=== PATIENT | male | born 1935 | race Caucasian/White ===

== ENCOUNTER 2019-05-12 12:15 | Outpatient (CLI) | payer MEDICARE, BC ==
[2019-05-12] MEDS ORDERED: ASPI-605 PO (15:47)
[2019-05-12] MEDS ORDERED: MELA5TAB PO (15:47)
[2019-05-12] MEDS ORDERED: ROSU40TA PO (15:47)
[2019-05-12] MEDS ORDERED: METF500S7 PO (15:47)
[2019-05-12] MEDS ORDERED: IRBE150T28 PO (15:47)
[2019-05-12] MEDS ORDERED: UBID50CA PO (15:47)
[2019-05-12] MEDS ORDERED: APIX5TAB4 PO (15:47)
[2019-05-12] MEDS ORDERED: OM3/1CAP3 PO (15:47)
[2019-05-12] MEDS ORDERED: MULT-439 PO (15:47)
[2019-05-12] MEDS ORDERED: METO50TA16 PO (15:47)
[2019-05-12] MEDS ORDERED: METO-357 PO (18:12)
[2019-05-15] MEDS ORDERED: LEVO500T90 PO (08:47)
== END 2019-05-12 23:59 | disposition home health service (06) ==
LOC: WOU 12:15
PROVIDERS: ATTEND Podiatrist Foot & Ankle Surgery
DX: E11.621 Type 2 diabetes mellitus with foot ulcer (principal); L97.826 Non-pressure chronic ulcer of other part of left lower leg with bone involvement without evidence of necrosis; Z79.84 Long term (current) use of oral hypoglycemic drugs; I73.9 Peripheral vascular disease, unspecified; R60.0 Localized edema; B35.1 Tinea unguium; L03.116 Cellulitis of left lower limb; Z79.01 Long term (current) use of anticoagulants; S80.12XD Contusion of left lower leg, subsequent encounter; W18.30XD Fall on same level, unspecified, subsequent encounter
CPT/HCPCS: 11043

== ENCOUNTER 2019-05-12 14:03 | Inpatient (IN) | payer MEDICARE, OTHER ==
[~2019-05-12] VITALS: Ht 177.8 cm; Wt 93.0 kg
[2019-05-12 15:10] VITALS: BP 134/72
--- NOTE | 2019-05-12 15:10 | NUR ---
WOUND STRIPPER CUTTER MACHINE: ADMISSION DIRECT ADMITTED THIS 83 YEAR OLD MALE PT WOUND CLINIC. PT FOR DEBRIDEMENT FOR TOMORROW PER WOUND CLINIC NURSE. LLE DRESSING IN PLACE, CLEAN, AND DRY. UNABLE TO ASSESS AND TAKE PHOTO DUE TO UNREMOVABLE DRESSING. PT WAS SEEN BY RESTAURANT CREW PERSON AND WAS TREATED AT THE CLINIC AND PHOTOS WERE TAKEN PRIOR TO DRESSING CHANGE. DR. RODRIGUEZ AWARE OF DIRECT ADMIT. AWAITING FOR MD TO SEE PT. AT BEDSIDE. PT A/OX4. NO C/O PAIN OR ANY DISCOMFORT. ORIENTED TO ROOM AND SURROUNDINGS. VSS; AFEBRILE. IN NO APPARENT DISTRESS NOTED. INSTRUCTED TO CALL FOR ASSISTANCE. WILL CONTINUE TO MONITOR.
[2019-05-12] MEDS ORDERED: MELA5TAB PO (15:47)
[2019-05-12] MEDS ORDERED: ROSU40TA PO (15:47)
[2019-05-12] MEDS ORDERED: UBID50CA PO (15:47)
[2019-05-12] MEDS ORDERED: OM3/1CAP3 PO (15:47)
[2019-05-12] MEDS ORDERED: IRBE150T28 PO (15:47)
[2019-05-12] MEDS ORDERED: MULT-439 PO (15:47)
[2019-05-12] MEDS ORDERED: APIX5TAB4 PO (15:47)
[2019-05-12] MEDS ORDERED: METF500S7 PO (15:47)
[2019-05-12] MEDS ORDERED: ASPI-605 PO (15:47)
[2019-05-12] MEDS ORDERED: METO50TA16 PO (15:47)
--- NOTE | 2019-05-12 15:50 | NUR ---
M/S HUMAN RESOURCES CLERK: NOTES INSERTED IV TO RIGHT FOREARM, GAUGE #20. DR. RODRIGUEZ ON THE PHONE AND REMINDED HIM OF ADMISSION.
[2019-05-12 16:00] VITALS: BP 134/72
--- NOTE | 2019-05-12 16:24 | NUR ---
WOUND ASSISTED LIVING CARE MANAGER: NOTES DR. RODRIGUEZ AT BEDSIDE AT THIS TIME.
--- NOTE | 2019-05-12 16:35 | NUR ---
M/S BROKERAGE PURCHASE AND SALE CLERK: NOTES MRSA SUIRVELLANCE (NOSTRIL) COLLECTED AND SENT TO LAB.
--- NOTE | 2019-05-12 17:29 | NUR ---
wound dialer: notes dinner served. hob elevated. instructed to call for assistance. will monitor.
[2019-05-12] MEDS ORDERED: *INSULIN REGULAR(HUMULIN R)HUM 100 UNIT/ML VIAL SQ PRN (18:00)
[2019-05-12] MEDS ORDERED: Z GUARD REMEDY 2 OZ OINT TP PRN (18:00)
[2019-05-12] MEDS ORDERED: MAG HYDROX/AL HYDROX/SIMETH 30 ML UDC PO PRN (18:00)
[2019-05-12] MEDS ORDERED: DEXTROSE 50%-WATER 50 ML DISP.SYRIN IV PRN (18:00)
[2019-05-12] MEDS ORDERED: ACETAMINOPHEN 325 MG TABLET PO PRN (18:00)
[2019-05-12] MEDS ORDERED: ONDANSETRON HCL/PF 4 MG/2 ML VIAL IVP PRN (18:00)
[2019-05-12] MEDS ORDERED: MAGNESIUM HYDROXIDE 30 ML UDC PO PRN (18:00)
[2019-05-12] MEDS ORDERED: FEE PK DOSING 1 MIN EA MC ONE (18:03)
[2019-05-12] MEDS ORDERED: METO-357 PO (18:12)
[2019-05-12] MEDS ORDERED: VANCOMYCIN 1 GM in IV D5W 250 ML IV ONE (18:30)
--- NOTE | 2019-05-12 18:35 | NUR ---
M/S ASSISTANT BANQUET MANAGER: NOTES DR. SUAREZ (DPM) CALLED WITH ORDERS TO KEEP PT NPO AFTER MIDNIGHT AND CONSENT FOR LEFT LOWER EXTREMITY DEBRIDEMENT WITH POSSIBLE OF APPLICATION OF WOUND VAC AND POSSIBLE WOUND CLOSURE. ORDERS READ BACK AND CARRIED OUT AND ACKNOWLEDGED.
[2019-05-12 18:36] LABS: CALCIUM, SERUM 8.7 mg/dL (8.5-10.1); CARBON DIOXIDE 29 mmol/L (21-32); CHLORIDE 104 mmol/L (98-107); CREATININE 1.5 mg/dL (0.6-1.3); GLUCOSE 170 mg/dL (74-106); POTASSIUM 4.3 mmol/L (3.5-5.1); SODIUM SERUM 139 mmol/L (136-145); UREA NITROGEN, BLOOD 26 mg/dL (7-18)
--- NOTE | 2019-05-12 18:50 | NUR ---
M/S AIR ROUTE CONTROLLER: NOTES PT MADE AWARE REGARDING PROCEDURE FOR TOMORROW. CONSENTS OBTAINED FROM PT AND VERBALIZED UNDERSTANDING. AT BEDSIDE. NEEDS ATTENDED. NO DISTRESS NOTED.
--- NOTE | 2019-05-12 19:00 | NUR ---
m/s artist consultant: notes bedside report given to morteza (rn) for continuity of care.
--- NOTE | 2019-05-12 19:05 | NUR ---
RN INITIAL NOTES: RECEIVED REPORT FROM NORBERTO RANGEL. MET WITH PT AND PT'S . PT IS A/O X4, ON RA, RESPIRATIONS EVEN AND UNLABORED. PT DENIES ANY PAIN OR DISCOMFORT AT THIS TIME. PT HAS LLE WOUND, WITH DRESSING. NOTED DRESSING WITH MARKED BLOOD, BUT NO LEAKING OR BLOODY STRIKETHROUGH NOTED. PT FOR DEBRIDEMENT IN AM, CONSENT SECURED. INFORMED PT ABOUT BEING NPO AFTER MIDNIGHT. DISCUSSED PLAN OF CARE TO PT. PT AGREE. PT'S WILL BRING THE ADVANCE DIRECTIVE FORM IN AM. IV ACCESS PATENT AND FLUSHING WELL, CURRENTLY ON IV VANCOMYCIN. SAFETY PRECAUTIONS FOR FALL INITIATED, CALL LIGHT IN REACH, WILL CONTINUE MONITORING PT.
[2019-05-12 20:00] VITALS: BP 190/95
[2019-05-12 20:53] VITALS: BP 171/83
--- NOTE | 2019-05-12 21:03 | NUR ---
RN NOTES: PT'S BP ELEVATED, INITIAL RESULT IS 190/95 HR 58, RECHECK AFTER AN HOUR, RESULT OBTAINED IS 171/83 HR 60, CONTACTED EPIC BIOLOGY LECTURER, PER MD TO GIVE HYDRALAZINE 25MG PO Q6HRS PRN FOR SBP GREATER THAN 160, ORDERS READ BACK, VERIFIED, CARRIED OUT.
--- NOTE | 2019-05-12 21:21 | NUR ---
PRN APRESOLINE: PT BP 171/83 HR 60, PRN APRESOLINE 25MG TAB PO ADMINISTERED TO PT AT THIS TIME, WILL CONTINUE MONITOR
[2019-05-12] MEDS: BLOOD SUGAR DIAGNOSTIC 1 EACH STRIP VI SCH (21:24)
--- NOTE | 2019-05-12 21:24 | NUR ---
ACCU CHECK 134: BLOOD SUGAR 134, PT REFUSED FOR INSULIN STATED HE'S NOT ON INSULIN AT HOME AND WA TAKING METFORMIN.
[2019-05-12] MEDS ORDERED: hydrALAZINE HCL 25 MG TABLET PO PRN (21:30)
[2019-05-12] MEDS ORDERED: ATORVASTATIN 40 MG TABLET PO ONE (22:00)
[2019-05-12] MEDS ORDERED: Medication Not On Formulary EA (Melatonin 5 MG) PO SCH (22:00)
[2019-05-12 23:40] VITALS: BP 155/82
--- NOTE | 2019-05-12 23:41 | NUR ---
RN NOTES: DRESSING ON LLE REINFORCED AT THIS TIME. WILL MONITOR FOR FURTHER BLEEDING
[2019-05-13] VITALS (11 sets, daily range): BP systolic 120–150; BP diastolic 61–87
[2019-05-13 03:23] LABS: BASOPHILS % (AUTO) 0.9 % (0.0-2.0); EOSINOPHILS % (AUTO) 3.3 % (0.0-6.0); HEMATOCRIT 36 % (39-51); LYMPHOCYTES # (AUTO) 0.8 /CMM (0.8-4.8); LYMPHOCYTES % (AUTO) 15.3 % (20.0-44.0); MEAN CORPUSCULAR HGB CONC 33 g/dl (31.0-36.0); MEAN CORPUSCULAR VOLUME 80 fL (80-96); MONOCYTES # (AUTO) 0.5 /CMM (0.1-1.30); MONOCYTES % (AUTO) 9.3 % (2.0-12.0); NEUTROPHILS # (AUTO) 3.7 /CMM (1.8-8.9); NEUTROPHILS % (AUTO) 71.2 % (43.0-81.0); PLATELET COUNT (AUTO) 152 /CMM (150-450); RED BLOOD CELL COUNT(AUTO) 4.53 MIL/uL (4.5-6.0); WHITE BLOOD COUNT (AUTO) 5.2 K/uL (4.3-11.0)
[2019-05-13 03:34] LABS: CALCIUM, SERUM 8.8 mg/dL (8.5-10.1); CARBON DIOXIDE 28 mmol/L (21-32); CHLORIDE 104 mmol/L (98-107); CREATININE 1.4 mg/dL (0.6-1.3); GLUCOSE 106 mg/dL (74-106); MAGNESIUM 1.8 mg/dL (1.8-2.4); PHOSPHORUS 3.8 mg/dL (2.5-4.9); SODIUM SERUM 140 mmol/L (136-145); UREA NITROGEN, BLOOD 23 mg/dL (7-18)
--- NOTE | 2019-05-13 05:40 | NUR ---
RN NOTES: X RAY BEING SONE AT BED SIDE
--- NOTE | 2019-05-13 06:00 | NUR ---
RN NOTES: EKG PERFORMED. RESULT IS SINUS BRADYCARDIA HR 56. PRE-OP.
[2019-05-13] MEDS: BLOOD SUGAR DIAGNOSTIC 1 EACH STRIP VI SCH ×4 (06:43→21:13)
--- NOTE | 2019-05-13 06:43 | NUR ---
ACCU CHECK 100: BLOOD SUGAR 100, NO INSULIN COVERAGE GIVEN PER SLIDING SCALE. PT NPO AWAITING SURGERY TODAY
[2019-05-13] MEDS ORDERED: MIDAZOLAM HCL 2 MG/2ML VIAL ONE (06:57)
[2019-05-13] MEDS ORDERED: FAMOTIDINE/PF INJ 20 MG/2 ML VIAL IV ONE (06:58)
[2019-05-13] MEDS ORDERED: FENTANYL PF 250MCG/5ML AMPUL ONE (06:58)
--- NOTE | 2019-05-13 07:01 | NUR ---
RN NOTES: RECEIVED CALL FROM DR SUAREZ, PER ASKING TO HAVE MRI DONE STAT BEFORE 729, CONTACTED MRI NO ANSWER, LEFT A MESSAGE. CONTACTED 4061, PER TECH DIETETIC AIDE WONT COME TILL 0900-09:30AM, AND OFFICE HOURS UP TO 0500PM ONLY. INFORMED DR SUAREZ
--- NOTE | 2019-05-13 07:02 | NUR ---
RN CLOSING NOTES: PT WILL BE GOING TO OR FOR DEBRIDEMENT OF LLE WOUND, POSSIBLE WOUND VAC APPLICATION, POSSIBLE WOUND CLOSURE. ALL CONSENT SIGNED BY PT. CHECKLIST READY. IV ACCESS REMAINS PATENT AND FLUSHING WELL, ON HL. VS REMAINS STABLE, NEEDS ATTENDED. REPORT GIVEN TO OR NURSE, AWAITING CLASSROOM PARAPROFESSIONAL. WILL ENDORSE TO DAY RN FOR CONTINUITY OF CARE.
[2019-05-13] MEDS ORDERED: ANESTHESIA TRAY IN PYXIS 1 EA TRAY MC ONE (07:03)
--- NOTE | 2019-05-13 07:06 | NUR ---
TEXTED DR. BASS FOR MRI APPROVAL.
--- NOTE | 2019-05-13 07:30 | NUR ---
rn notes: bead picker by md dr bobby bass in the unit. orders for wound vac transcribed, placed a call to central, no answer, left a message.
--- NOTE | 2019-05-13 07:30 | NUR ---
MS RN OPENING NOTES RECEIVED PATIENT OFF UNIT. PATIENT CURRENTLY IN OR FOR LEFT LOWER EXTREMITY DEBRIDEMENT.
[2019-05-13] MEDS ORDERED: BACITRACIN 50000 UNITS/VIAL ONE (07:42)
[2019-05-13] MEDS ORDERED: LIDOCAINE HCL/MPF 1% 30 ML VIAL IJ ONE (07:42)
--- NOTE | 2019-05-13 07:43 | NUR ---
MRI APPROVED, JUST TEXTED ICE CREAM MIXER TO COME IN EARLY.
--- NOTE | 2019-05-13 08:50 | NUR ---
MS RN NOTES RECEIVED REPORT FROM CRISTI IN OR, THAT PATIENT IS FINISHED AND WILL BACK UP TO THE UNIT. WITH ORDERS FOR WOUND VAC DSG CHANGE 3X/WL, ID CONSULT, WEIGHT BEARING TOLERATED ALERT AND ORIENTED WITH NO C/O PAIN. PER TORO JAQUEZ DR. WILL WRITE ORDERS.
[2019-05-13] MEDS ORDERED: Medication Not On Formulary EA (Om3/Dha/Epa/Cod Liver Oil/A/D3 (Cod Liver Oil Softgel) 1 PO SCH (09:00)
[2019-05-13] MEDS ORDERED: Medication Not On Formulary EA (Rosuvastatin Calcium (Crestor) 40 MG) PO SCH (09:00)
[2019-05-13] MEDS ORDERED: UBIDECARENONE 100 MG PO SCH (09:00)
[2019-05-13] MEDS ORDERED: IRBESARTAN (150MG) 150 MG TABLET PO SCH (09:00)
[2019-05-13] MEDS ORDERED: METOPROLOL TARTRATE 50 MG TABLET PO SCH (09:00)
--- NOTE | 2019-05-13 09:00 | NUR ---
MS RN NOTES RECEIVED PATIENT FROM [facility] OR VIA GUSRNEY FOR S/P LEFT LOWER EXTREMITY DEBRIDEMENT. DRESSING TO LEFT LEG IN PLACE. WOUND VAC INTACT SUCTIONING SEROSANG FLUID WITH SETTING OF 125MMHG CONTINUOS ORDERED. PATIOENT DENIES ANY CV/O PAIN NOR DISCOMFORT AT THIS TIME. V/S FOLLOWS, 131/72, 97.7, HR 57, RR 18, SPO2 OF 96% ROOM AIR. REORIENTED PATIENT TO ROOM, CALL LIGHT AND UNIT.
--- NOTE | 2019-05-13 10:00 | NUR ---
MS RN NOTES PATIENT OFF UNIT, LEFT FOR MRI IN STABLE CONDITION.
--- NOTE | 2019-05-13 10:12 | NUR ---
MS RN NOTES RECEIVED A CALL FROM TORO LUEVANO, PER DR, TO CANCEL MRI, HE DOES NOT WANT PATIENT OFF THE WOUND VAC. ORDER NOTED AND CARRIED OUT.
--- NOTE | 2019-05-13 10:50 | NUR ---
MS RN NOTES PATIENT RETURNED FROM MRI VIA GURNEY. TORO LUEVANO IN ROOM AND SPOKE TO AND PATIENT REGARDING SURGERY, WOUND VAC AND FOLLOW UP. PER , WOUND VAC DRESSING WILL BE CHANGE 3X/WK AND REMAINS AT CONTINUOS 1255MMHG SETTING.
--- NOTE | 2019-05-13 11:15 | NUR ---
MS RN NOTES SEEN BY CASE MANAGEMENT FOR D/C PLANNING
[2019-05-13] MEDS ORDERED: VANCOMYCIN 1 GM in IV D5W 250 ML IV SCH (12:00)
[2019-05-13] MEDS: METOPROLOL SUCCINATE 50 MG TAB.SR.24H PO SCH (12:23)
[2019-05-13] MEDS: LOSARTAN POTASSIUM 50 MG TABLET PO SCH (12:23)
[2019-05-13] MEDS: MULTIVIT W/MINERALS 1 TAB TABLET PO SCH (12:24)
--- NOTE | 2019-05-13 12:25 | NUR ---
MS RN NOTES B/P MEDS GIVEN. PER PATIENT OK TO TAKE ALL MEDS NOW. PER PATIENT HR BASELINE IS IN LOW 50'S AND ALWAYS TAKES METOPROLOL.
[2019-05-13] MEDS: INSULIN REGULAR, HUMAN 100 UNIT/ML 3 ML VIAL SQ PRN ×2 (13:24→17:34)
[2019-05-13 16:58] LABS: APPEARANCE,URINE CLEAR (CLEAR); BILIRUBIN,URINE NEGATIVE (NEGATIVE); BLOOD, URINE NEGATIVE Ery/uL (NEGATIVE); COLOR,URINE YELLOW (YELLOW); KETONES,URINE NEGATIVE (NEGATIVE); LEUKOCYTE ESTERASE ,URINE NEGATIVE (NEGATIVE); NITRITE, URINE NEGATIVE (NEGATIVE); PROTEIN,URINE NEGATIVE (NEGATIVE); UGLUCOSE NEGATIVE (NEGATIVE); UROBILINOGEN,URINE 0.2 EU/dL (0.2)
[2019-05-13 17:04] LABS: CREATININE, URINE 115.3 MG/DL (30.0-125.0)
[2019-05-13 17:42] LABS: EOSINOPHIL,URINE None Seen
--- NOTE | 2019-05-13 18:50 | NUR ---
MS RN CLOSING NOTES PATIENT ALERT AND ORIENTED X4. S/P LLE DEBRIDEMENT WITH WOUND VAC AND DRESSING INTACT AND SUCTIONING SEROSANG FLUID CONTINUOUSLY AT 125MMHG ORDERED. PATIENT AMBULATORY WITH STEADY GAIT. PATIENT DID NOT C/O PAIN NOR DISCOMFORT TO LLE DURING THE SHIFT S/P DEBRIDEMENT. RIGHT WRIST #20 INTACT AND PATENT WITHOUT S/S OF COMPLICATIONS OBSERVED. ABLE TO VERBALIZE NEEDS. CALL LIGHT WITHIN REACH. BED IN LOWEST POSITION.
--- NOTE | 2019-05-13 19:30 | NUR ---
RN OPEN NOTES RECEIVED PATIENT AWAKE SITTING IN CHAIR. A/OX4. NO SIGNS OF DISTRESS OR DISCOMFORT. BREATHING EVEN AND UNLABORED. IV ACCESS IN R WRIST, PATENT AND INTACT, NO SIGNS OF REDNESS OR INFILTRATIONS. HAS WOUND VAC INTACT ON CONTINUOUS SUCTION AT 125MMHG SUCTIONING SERO SANG FLUID. BED IN LOW LOCKED POSITION WITH SIDE RAILS X2. CALL LIGHT WITHIN REACH. WILL CONTINUE TO MONITOR.
[2019-05-13] MEDS: CEFEPIME 1 GM in IV D5W 50 ML IV SCH (20:13)
[2019-05-13] MEDS: HYDROCODONE/APAP 5/325MG 1 EACH TABLET PO PRN (20:22)
--- NOTE | 2019-05-13 20:22 | NUR ---
RN NOTES ADMINISTERED NORCO 5/325MG ORDERED FOR 4/10 LL LEG PAIN, AT PATIENT REQUEST. VSS. WILL CONTINUE TO MONITOR.
[2019-05-13] MEDS ORDERED: CLINDAMYCIN IV RTU IN D5W 600 MG/50 ML PIGGYBACK IV SCH (21:00)
[2019-05-13] MEDS: CLINDAMYCIN 600 MG in IV D5W 50 ML IV SCH (21:12)
[2019-05-13] MEDS: ATORVASTATIN 40 MG TABLET PO SCH (21:12)
[2019-05-13] MEDS: ZOLPIDEM TARTRATE 5 MG TABLET PO PRN (23:01)
--- NOTE | 2019-05-13 23:01 | NUR ---
RN NOTES ADMINISTERED AMBIEN 5MG ORDERED FOR INSOMNIA AT PATIENT REQUEST. VSS. WILL CONTINUE TO MONITOR.
[2019-05-14] MEDS: CLINDAMYCIN 600 MG in IV D5W 50 ML IV SCH ×3 (06:00→20:47)
[2019-05-14] MEDS: BLOOD SUGAR DIAGNOSTIC 1 EACH STRIP VI SCH ×4 (06:35→22:11)
--- NOTE | 2019-05-14 06:54 | NUR ---
RN CLOSING NOTES PATIENT AWAKE SITTING IN BED. A/OX4. NO SIGNS OF DISTRESS OR DISCOMFORT. BREATHING EVEN AND UNLABORED. IV ACCESS IN R WRIST, PATENT AND INTACT, NO SIGNS OF REDNESS OR INFILTRATIONS. HAS WOUND VAC INTACT ON CONTINUOUS SUCTION AT 125MMHG SUCTIONING VERY SCANT SERO SANG FLUID. SUCTIONED <10ML OF FLUID THROUGHOUT SHIFT. ALL NEEDS MET. NO SIGNIFICANT CHANGES THROUGH THE NIGHT. BED IN LOW LOCKED POSITION WITH SIDE RAILS X2. CALL LIGHT WITHIN REACH. WILL ENDORSE TO AM SHIFT FOR SALONI.
--- NOTE | 2019-05-14 07:30 | NUR ---
RN MS NOTES PT IN BED, AWAKE, ALERT AND ORIENTED, NO COMPLAINT OF PAIN OR ANY DISCOMFORT, RESPIRATIONS NORMAL, CALL LIGHT WITHIN REACH, WOUND VAC IN PLACE, DRAINING MINIMALLY WITH SANGUENOUS DRAIN, NEEDS ATTENDED.
[2019-05-14 07:38] LABS: EOSINOPHILS % (AUTO) 5.4 % (0.0-6.0); HEMATOCRIT 38 % (39-51); HEMOGLOBIN 12.2 g/dL (13.5-17.5); LYMPHOCYTES # (AUTO) 0.9 /CMM (0.8-4.8); MEAN CORPUSCULAR HGB CONC 32 g/dl (31.0-36.0); MEAN CORPUSCULAR VOLUME 81 fL (80-96); MONOCYTES # (AUTO) 0.6 /CMM (0.1-1.30); MONOCYTES % (AUTO) 11.6 % (2.0-12.0); NEUTROPHILS # (AUTO) 3.1 /CMM (1.8-8.9); PLATELET COUNT (AUTO) 162 /CMM (150-450); RED BLOOD CELL COUNT(AUTO) 4.61 MIL/uL (4.5-6.0); WHITE BLOOD COUNT (AUTO) 4.9 K/uL (4.3-11.0)
[2019-05-14 07:57] LABS: CREATINE KINASE, TOTAL 88 U/L (39-308)
[2019-05-14 08:00] LABS: ALANINE AMINOTRANSFERASE 23 U/L (12-78); ALBUMIN 2.9 g/dL (3.4-5.0); ALKALINE PHOSPHATASE 92 U/L (46-116); ASPARTATE AMINOTRANSFERASE 13 U/L (15-37); BILIRUBIN,TOTAL 0.4 mg/dL (0.2-1.0); CALCIUM, SERUM 8.5 mg/dL (8.5-10.1); CARBON DIOXIDE 29 mmol/L (21-32); CHLORIDE 104 mmol/L (98-107); CREATININE 1.5 mg/dL (0.6-1.3); GLUCOSE 104 mg/dL (74-106); MAGNESIUM 2.4 mg/dL (1.8-2.4); PHOSPHORUS 3.4 mg/dL (2.5-4.9); SODIUM SERUM 141 mmol/L (136-145); TOTAL PROTEIN, SERUM 6.6 g/dL (6.4-8.2); UREA NITROGEN, BLOOD 21 mg/dL (7-18)
[2019-05-14 08:01] VITALS: BP 162/88
[2019-05-14] MEDS: CEFEPIME 1 GM in IV D5W 50 ML IV SCH ×2 (08:55→17:43)
[2019-05-14] MEDS: MULTIVIT W/MINERALS 1 TAB TABLET PO SCH (08:55)
[2019-05-14] MEDS: LOSARTAN POTASSIUM 50 MG TABLET PO SCH (08:56)
[2019-05-14] MEDS: METOPROLOL SUCCINATE 50 MG TAB.SR.24H PO SCH (08:56)
--- NOTE | 2019-05-14 13:00 | NUR ---
RN MS NOTES PT IN BED, AWAKE, ALERT AND ORIENTED, DENIES PAIN, NOT IN DISTRESS, PER PT HE COMPLETED MRI YESTERDAY, CALLED MRI, RESULT UPLOADED TO THE SYSTEM, AWAITING FINAL WOUND CULTURE RESULTS, PT ABLE TO AMBULATE ALONG THE HALLWAY WITH SLOW STEADY GAIT.
[2019-05-14 16:00] VITALS: BP 141/77
--- NOTE | 2019-05-14 18:31 | NUR ---
RN MS NOTES PT IN BED, AWAKE, ALERT AND ORIENTED, NO COMPLAINT OF PAIN OR ANY DISCOMFORT, RESPIRATIONS NORMAL, WOUND VAC DRAINING MINIMALLY, PM MEDS GIVEN ORDERED, ALL NEEDS ATTENDED.
[2019-05-14 20:00] VITALS: BP 159/78
[2019-05-14] MEDS: HYDROCODONE/APAP 5/325MG 1 EACH TABLET PO PRN (21:01)
--- NOTE | 2019-05-14 21:01 | NUR ---
ms cigarette making examiner notes pain mgt c/o left leg pain norco tablet given as ordered. .will re- assess later.
--- NOTE | 2019-05-14 21:15 | NUR ---
MS RANGEL INITIAL NOTES RECEIVED PT IN BED AWAKE AND SITTING WHILE TALKING TO THE MUSIC ENGRAVER MARTINE. HE HAD A WOUND BACK AND WORKING WELL ONLY LITTLE AMOUNT OF OUTPUT NOTED. DRESSING DRY AND INTACT. DENIES ANY PAIN OR ANY DISCOMFORT AT THIS TIME. KEPT HIM WARM AND COMFORTABLE AT ALL TIMES. PLACE CALL LIGHT AT REACH. WILL CONTINUE MONITORING. Addendum: 05/14/19 at 2155 by ERI LUCAS LVN wrong time
[2019-05-14] MEDS: ATORVASTATIN 40 MG TABLET PO SCH (22:11)
[2019-05-14] MEDS: ZOLPIDEM TARTRATE 5 MG TABLET PO PRN (22:15)
--- NOTE | 2019-05-14 22:15 | NUR ---
MS DESIGN TECHNOLOGY TEACHER NOTES BLOOD SUGAR CHECKED DONE 116, NO INSULIN DUE AT THIS TIME. NO SIGNS OF HYPO GLYCEMIA NOTED. SLEEP MEDICATION ALSO ADMINISTER ND PT REQUESTED. KEPT HIM WARM AND COMFORTABLE AT ALL TIMES. WOUND VAC STILL IN PLACE,. WILL CONTINUE MONITORING.
--- NOTE | 2019-05-15 | NUR ---
MS FINANCIAL CENTER MANAGER NOTES PT SLEEPING COMFORTABLY IN BED WITHOUT ANY DISCOMFORT NOTED. WILL CONTINUE MONITORING.
[2019-05-15] MEDS: CLINDAMYCIN 600 MG in IV D5W 50 ML IV SCH (05:10)
[2019-05-15] MEDS: BLOOD SUGAR DIAGNOSTIC 1 EACH STRIP VI SCH (06:47)
--- NOTE | 2019-05-15 06:51 | NUR ---
ms bottle labeler notes blood sugar checked done 99, no insulin due at this time. pt denies any discomfort. he stand up and ambulate doing his morning routine. pt stated slept well and stable susan the night and all due meds . all needs met and no signs of any discomfort noted. still on wound vac. no leaking noted. endorsed to am nurse for continuity of care. place call light at reach.
[2019-05-15] MEDS: INSULIN REGULAR, HUMAN 100 UNIT/ML 3 ML VIAL SQ PRN (07:03)
[2019-05-15 07:20] LABS: CALCIUM, SERUM 8.7 mg/dL (8.5-10.1); CARBON DIOXIDE 29 mmol/L (21-32); CHLORIDE 106 mmol/L (98-107); CREATININE 1.4 mg/dL (0.6-1.3); GLUCOSE 106 mg/dL (74-106); SODIUM SERUM 142 mmol/L (136-145); UREA NITROGEN, BLOOD 24 mg/dL (7-18)
--- NOTE | 2019-05-15 07:25 | NUR ---
MS RN OPENING NOTES RECEIVED PT IN THE ROOM AWAKE, WALKING BACK TO HIS BED FROM THE BATHROOM. A/O X4. TOLERATING RA, WITH NO ACUTE RESPIRATORY DISTRESS NOTED. PT DENIES ANY PAIN OR DISCOMFORT AT THIS TIME. PT DENIES ANY CONCERNS AND QUESTIONS. PT JUST STATED HE'S READY TO GO HOME TODAY. PIV TO RIGHT WRIST G20 SL, FLUSHED WITH NS, INTACT AND OPERATIONAL. PT KEPT COMFORTABLE. CALL LIGHT KEPT WITHIN REACH. PT'S BED IN LOWEST, LOCKED POSITION WITH SR X2. WILL CONTINUE PLAN OF CARE.
[2019-05-15 08:00] VITALS: BP 135/68
[2019-05-15 08:06] LABS: *SPE A/G RATIO 1.1 (0.7-1.7); *SPE ALBUMIN 3.1 g/dL (2.9-4.4); *SPE ALPHA-1-GLOBULIN 0.3 g/dL (0.0-0.4); *SPE ALPHA-2-GLOBULIN 0.9 g/dL (0.4-1.0); *SPE BETA GLOBULIN 0.8 g/dL (0.7-1.3); *SPE GLOBULIN, TOTAL 2.9 g/dL (2.2-3.9); *SPE M-SPIKE Not Observed g/dL (Not Observed); *SPEGAMMA GLOBULIN 0.9 g/dL (0.4-1.8)
[2019-05-15] MEDS: MULTIVIT W/MINERALS 1 TAB TABLET PO SCH (08:15)
[2019-05-15 08:16] VITALS: BP 135/68
[2019-05-15] MEDS: METOPROLOL SUCCINATE 50 MG TAB.SR.24H PO SCH (08:16)
[2019-05-15] MEDS: LOSARTAN POTASSIUM 50 MG TABLET PO SCH (08:16)
--- NOTE | 2019-05-15 08:19 | NUR ---
RN NOTES PT HAS BP OF 135/68 AND RECHECKED HR OF 56. PT INSIST TO TAKE METOPROLOL STATING HIS HEART RATE IS NORMALLY AT 50S AND STILL TAKING METOPROLOL. RN RECOMMENDED TO SKIP THE DOSE, PT STILL INSIST TO TAKE IT. WILL CONTINUE TO MONITOR.
[2019-05-15] MEDS ORDERED: LEVO500T90 PO (08:47)
--- NOTE | 2019-05-15 10:31 | NUR ---
WOUND CARE CONSULT: PT SEEN FOR WOUND VAC DRESSING CHANGE. [facility] HOME VAC UNIT APPLIED TODAY. WOUND ON LEFT LOWER LEG MEASURES 6CM X 2CM X 0.5CM WITH TWO SUTURES IN PLACE AT EDGE OF WOUND. SLIGHT EDEMA NOTED TO PERIWOUND AREA. SEROSANGUINOUS DRAINAGE NOTED, SCANT AMOUNT, NO ODOR. PERIWOUND IS CLEAR. SKIN PREP AND VAC DRAPE WAS APPLIED TO PERIWOUND, OIL EMULSION DSG APPLIED TO WOUND, COVERED WITH GRANUFOAM. VAC AT 125mmHg CONTINUOUS SETTING. PT TOLERATED WELL, KERLIX WRAP AND BURN NET APPLIED. ALL INSTRUCTIONS GIVEN TO PT AND EXPLAINED USE OF HOME VAC UNIT, INCLUDING LEATHER STAKER INSTRUCTIONS. PT VERBALIZED UNDERSTANDING. DISCUSSED WITH NURSING STAFF. WOUND PHOTO WAS TAKEN BY VALERIA.
--- NOTE | 2019-05-15 11:20 | NUR ---
MS LIFE SKILLS COORDINATOR NOTES PT TO DISCHARGE HOME WITH [facility]. PT PICKED UP BY SPOUSE. PT A/O X4, AMBULATORY. PT TOLERATING RA, WITH NO ACUTE RESPIRATORY DISTRESS NOTED. PT DENIES ANY PAIN OR DISCOMFORT AT THE TIME OF DISCHARGE. DISCHARGE INSTRUCTIONS AND INVENTORY LIST SIGNED BY PT. ALL BELONGINGS WITH THE PT. PICTURE OF LEFT LOWER LEG WOUND TAKEN AND FILED IN THE CHART. WOUND DRESSING WAS CHANGED. PT AND SPOUSE INSTRUCTED HOW TO MANIPULATE WOUND VAC. PRESCRIPTION OF LEVAQUIN 250MMG QD X5DAYS GIVEN TO THE PT. PUV TO RIGHT WRIST REMOVED AND APPLIED DRESSING. ALL NEEDS AND CARE PROVIDED. PT GLAD WITH ALL THE CARING STAFFS. PT LEFT THE UNIT AT 1110 AMBULATING, ESCORTED BY SLICK TO THE LOBBY AND ACCOMPANIED BY SPOUSE. SAM/FILIPE AND /CARLOS AWARE OF DISCHARGE.
[2019-05-15 14:07] LABS: PTH, INTACT 29 pg/mL (15-65)
[2019-05-15] MEDS ORDERED: CEFTRIAXONE 1 G in IV D5W 50 ML IV SCH (17:00)
== END 2019-05-15 11:00 | disposition home health service (06) | DRG 982 ==
LOC: WOUND3 14:37 → MED 18:19
PROVIDERS: ADMIT Internal Medicine; ATTEND Internal Medicine
PROC: 0KBT0ZZ Excision of Left Lower Leg Muscle, Open Approach (ICD-10-PCS; principal; 2019-05-13)
DX: E11.621 Type 2 diabetes mellitus with foot ulcer (principal); L03.116 Cellulitis of left lower limb; L97.929 Non-pressure chronic ulcer of unspecified part of left lower leg with unspecified severity; L02.416 Cutaneous abscess of left lower limb; I25.10 Atherosclerotic heart disease of native coronary artery without angina pectoris; Y92.9 Unspecified place or not applicable; I48.91 Unspecified atrial fibrillation; Z95.5 Presence of coronary angioplasty implant and graft; W18.30XA Fall on same level, unspecified, initial encounter; E11.42 Type 2 diabetes mellitus with diabetic polyneuropathy; E11.622 Type 2 diabetes mellitus with other skin ulcer; E11.22 Type 2 diabetes mellitus with diabetic chronic kidney disease; I12.9 Hypertensive chronic kidney disease with stage 1 through stage 4 chronic kidney disease, or unspecified chronic kidney disease; N18.9 Chronic kidney disease, unspecified; E78.5 Hyperlipidemia, unspecified; I10 Essential (primary) hypertension; Z79.82 Long term (current) use of aspirin; Z79.84 Long term (current) use of oral hypoglycemic drugs; Z79.899 Other long term (current) drug therapy; J44.9 Chronic obstructive pulmonary disease, unspecified; Z91.81 History of falling; Z83.3 Family history of diabetes mellitus; B35.1 Tinea unguium; Z98.890 Other specified postprocedural states; N17.0 Acute kidney failure with tubular necrosis
CPT/HCPCS: 36415; 71045-TC; 73590-TC; 73718-TC; 80048-TC; 80053-TC; 81000-TC; 82550-TC; 82570-TC; 82962-TC; 83735-TC; 83970; 84100-TC; 84155; 84155-TC; 84165; 84300-TC; 85025-TC; 85610-TC; 85652-TC; 85730-TC; 86850-TC; 87070-TC; 87081-TC; 87186-TC; 93926-TC; A4217; A6209; A6253; A6403; G0378; J0690; J0692; J0696; J1815; J2250; J2405; J2704; J2765; J3010; J3370; J3490; J7050; J7060

== ENCOUNTER 2019-05-19 13:02 | Outpatient (CLI) | payer MEDICARE, OTHER ==
[~2019-05-19 13:02] MED LIST: APIX5TAB4 PO; ASPI-605 PO; IRBE150T28 PO; LEVO500T90 PO; MELA5TAB PO; METF500S7 PO; METO-357 PO; MULT-439 PO; OM3/1CAP3 PO; ROSU40TA PO; UBID50CA PO
== END 2019-05-19 23:59 | disposition home or self-care (01) ==
LOC: MSC 13:02
PROVIDERS: ATTEND Internal Medicine
DX: S81.802D Unspecified open wound, left lower leg, subsequent encounter (principal); I48.91 Unspecified atrial fibrillation; Z95.5 Presence of coronary angioplasty implant and graft; I10 Essential (primary) hypertension; E78.5 Hyperlipidemia, unspecified; J44.9 Chronic obstructive pulmonary disease, unspecified; E11.8 Type 2 diabetes mellitus with unspecified complications; Z79.84 Long term (current) use of oral hypoglycemic drugs; Z79.82 Long term (current) use of aspirin; Z79.899 Other long term (current) drug therapy; Z80.9 Family history of malignant neoplasm, unspecified

== ENCOUNTER 2019-05-19 13:45 | Outpatient (CLI) | payer MEDICARE, OTHER | END 2019-05-19 23:59 | disposition home health service (06) | LOC: WOU 13:45 | PROVIDERS: ATTEND Podiatrist Foot & Ankle Surgery | DX: E11.622 Type 2 diabetes mellitus with other skin ulcer (principal); L97.825 Non-pressure chronic ulcer of other part of left lower leg with muscle involvement without evidence of necrosis; E11.42 Type 2 diabetes mellitus with diabetic polyneuropathy; Z79.84 Long term (current) use of oral hypoglycemic drugs; L03.116 Cellulitis of left lower limb; B35.1 Tinea unguium; Z79.01 Long term (current) use of anticoagulants; R60.0 Localized edema; Z79.82 Long term (current) use of aspirin; I73.9 Peripheral vascular disease, unspecified | CPT/HCPCS: 11043; A6209 ==

== ENCOUNTER 2019-05-26 12:25 | Outpatient (CLI) | payer MEDICARE, OTHER | END 2019-05-26 23:59 | disposition home health service (06) | LOC: WOU 12:25 | PROVIDERS: ATTEND Podiatrist Foot & Ankle Surgery | DX: E11.622 Type 2 diabetes mellitus with other skin ulcer (principal); L97.825 Non-pressure chronic ulcer of other part of left lower leg with muscle involvement without evidence of necrosis; I73.9 Peripheral vascular disease, unspecified; R60.0 Localized edema; B35.1 Tinea unguium; Z79.84 Long term (current) use of oral hypoglycemic drugs; Z79.01 Long term (current) use of anticoagulants; Z79.82 Long term (current) use of aspirin | CPT/HCPCS: 11043 ==

== ENCOUNTER 2019-06-02 13:15 | Outpatient (CLI) | payer MEDICARE, OTHER | END 2019-06-02 23:59 | disposition home health service (06) | LOC: WOU 13:15 | PROVIDERS: ATTEND Podiatrist Foot & Ankle Surgery | DX: I87.312 Chronic venous hypertension (idiopathic) with ulcer of left lower extremity (principal); L97.825 Non-pressure chronic ulcer of other part of left lower leg with muscle involvement without evidence of necrosis; I87.2 Venous insufficiency (chronic) (peripheral); E11.42 Type 2 diabetes mellitus with diabetic polyneuropathy; I73.9 Peripheral vascular disease, unspecified; R60.0 Localized edema; B35.1 Tinea unguium; Z79.84 Long term (current) use of oral hypoglycemic drugs; Z79.82 Long term (current) use of aspirin; Z79.01 Long term (current) use of anticoagulants | CPT/HCPCS: 11043; 36415; 84134-TC ==

== ENCOUNTER 2019-06-09 13:10 | Outpatient (CLI) | payer MEDICARE, OTHER | END 2019-06-09 23:59 | disposition home health service (06) | LOC: WOU 13:10 | PROVIDERS: ATTEND Podiatrist Foot & Ankle Surgery | DX: I87.312 Chronic venous hypertension (idiopathic) with ulcer of left lower extremity (principal); L97.822 Non-pressure chronic ulcer of other part of left lower leg with fat layer exposed; I87.2 Venous insufficiency (chronic) (peripheral); I73.9 Peripheral vascular disease, unspecified; E11.42 Type 2 diabetes mellitus with diabetic polyneuropathy; Z79.84 Long term (current) use of oral hypoglycemic drugs; Z79.01 Long term (current) use of anticoagulants; Z79.82 Long term (current) use of aspirin; B35.1 Tinea unguium | CPT/HCPCS: 11042; A6452 ==

== ENCOUNTER 2019-06-16 12:45 | Outpatient (CLI) | payer MEDICARE, OTHER | END 2019-06-16 23:59 | disposition home health service (06) | LOC: WOU 12:45 | PROVIDERS: ATTEND Podiatrist Foot & Ankle Surgery | DX: I87.312 Chronic venous hypertension (idiopathic) with ulcer of left lower extremity (principal); L97.822 Non-pressure chronic ulcer of other part of left lower leg with fat layer exposed; I87.2 Venous insufficiency (chronic) (peripheral); I73.9 Peripheral vascular disease, unspecified; R60.0 Localized edema; B35.1 Tinea unguium; E11.42 Type 2 diabetes mellitus with diabetic polyneuropathy; Z79.84 Long term (current) use of oral hypoglycemic drugs; Z79.01 Long term (current) use of anticoagulants; Z79.82 Long term (current) use of aspirin; I10 Essential (primary) hypertension | CPT/HCPCS: 11042 ==

== ENCOUNTER 2019-06-23 13:10 | Outpatient (CLI) | payer MEDICARE, OTHER | END 2019-06-23 23:59 | disposition home health service (06) | LOC: WOU 13:10 | PROVIDERS: ATTEND Podiatrist Foot & Ankle Surgery | DX: I87.312 Chronic venous hypertension (idiopathic) with ulcer of left lower extremity (principal); L97.822 Non-pressure chronic ulcer of other part of left lower leg with fat layer exposed; I87.2 Venous insufficiency (chronic) (peripheral); E11.42 Type 2 diabetes mellitus with diabetic polyneuropathy; Z79.84 Long term (current) use of oral hypoglycemic drugs; B35.1 Tinea unguium; R60.0 Localized edema; Z79.01 Long term (current) use of anticoagulants; Z79.82 Long term (current) use of aspirin | CPT/HCPCS: 11042 ==

== ENCOUNTER 2019-06-30 13:00 | Outpatient (CLI) | payer MEDICARE, OTHER | END 2019-06-30 23:59 | disposition home health service (06) | LOC: WOU 13:00 | PROVIDERS: ATTEND Podiatrist Foot & Ankle Surgery | DX: I87.312 Chronic venous hypertension (idiopathic) with ulcer of left lower extremity (principal); L97.822 Non-pressure chronic ulcer of other part of left lower leg with fat layer exposed; E11.51 Type 2 diabetes mellitus with diabetic peripheral angiopathy without gangrene; E11.42 Type 2 diabetes mellitus with diabetic polyneuropathy; Z79.84 Long term (current) use of oral hypoglycemic drugs; I87.2 Venous insufficiency (chronic) (peripheral); R60.0 Localized edema; B35.1 Tinea unguium; Z79.01 Long term (current) use of anticoagulants; Z79.82 Long term (current) use of aspirin | CPT/HCPCS: 11042 ==

== ENCOUNTER 2019-07-07 13:15 | Outpatient (CLI) | payer MEDICARE, BC | END 2019-07-07 23:59 | disposition home health service (06) | LOC: WOU 13:15 | PROVIDERS: ATTEND Podiatrist Foot & Ankle Surgery | DX: I87.312 Chronic venous hypertension (idiopathic) with ulcer of left lower extremity (principal); L97.828 Non-pressure chronic ulcer of other part of left lower leg with other specified severity; I87.2 Venous insufficiency (chronic) (peripheral); E11.51 Type 2 diabetes mellitus with diabetic peripheral angiopathy without gangrene; E11.42 Type 2 diabetes mellitus with diabetic polyneuropathy; Z79.84 Long term (current) use of oral hypoglycemic drugs; Z79.01 Long term (current) use of anticoagulants; Z79.82 Long term (current) use of aspirin; R60.0 Localized edema; B35.1 Tinea unguium; I10 Essential (primary) hypertension; Z87.891 Personal history of nicotine dependence | CPT/HCPCS: 17250 ==

== ENCOUNTER 2019-07-14 13:28 | Outpatient (CLI) | payer MEDICARE, OTHER | END 2019-07-14 23:59 | disposition home health service (06) | LOC: WOU 13:28 | PROVIDERS: ATTEND Podiatrist Foot & Ankle Surgery | DX: I87.312 Chronic venous hypertension (idiopathic) with ulcer of left lower extremity (principal); L97.822 Non-pressure chronic ulcer of other part of left lower leg with fat layer exposed; E11.42 Type 2 diabetes mellitus with diabetic polyneuropathy; E11.51 Type 2 diabetes mellitus with diabetic peripheral angiopathy without gangrene; Z79.84 Long term (current) use of oral hypoglycemic drugs; Z79.01 Long term (current) use of anticoagulants; Z79.82 Long term (current) use of aspirin; B35.1 Tinea unguium | CPT/HCPCS: 17250 ==

== ENCOUNTER 2019-07-28 13:30 | Outpatient (CLI) | payer MEDICARE, OTHER | END 2019-07-28 23:59 | disposition home health service (06) | LOC: WOU 13:30 | PROVIDERS: ATTEND Podiatrist Foot & Ankle Surgery | DX: I87.2 Venous insufficiency (chronic) (peripheral) (principal); E11.42 Type 2 diabetes mellitus with diabetic polyneuropathy; E11.51 Type 2 diabetes mellitus with diabetic peripheral angiopathy without gangrene; Z79.84 Long term (current) use of oral hypoglycemic drugs; I83.812 Varicose veins of left lower extremity with pain; Z79.01 Long term (current) use of anticoagulants; Z79.82 Long term (current) use of aspirin; R60.0 Localized edema; B35.1 Tinea unguium | CPT/HCPCS: G0463 ==

== ENCOUNTER 2022-10-12 09:30 | Outpatient (CLI) | payer MEDICARE, BC ==
[2022-10-12] MEDS ORDERED: MUPIROCIN 2% CREAM 15 GM TUBE TP ONE (10:14)
== END 2022-10-12 23:59 | disposition home or self-care (01) ==
LOC: WOU 09:30
PROVIDERS: ATTEND Podiatrist Foot & Ankle Surgery
DX: S81.811A Laceration without foreign body, right lower leg, initial encounter (principal); S81.012A Laceration without foreign body, left knee, initial encounter; L03.116 Cellulitis of left lower limb; W19.XXXA Unspecified fall, initial encounter; Y92.89 Other specified places as the place of occurrence of the external cause; S80.11XA Contusion of right lower leg, initial encounter; S80.12XA Contusion of left lower leg, initial encounter; E11.9 Type 2 diabetes mellitus without complications; Z79.84 Long term (current) use of oral hypoglycemic drugs; Z79.01 Long term (current) use of anticoagulants; I10 Essential (primary) hypertension; Z87.891 Personal history of nicotine dependence
CPT/HCPCS: 87070; 87075; 73560; G0463